=== PATIENT | female | born 1950 | race Caucasian/White ===

== ENCOUNTER 2020-08-13 15:08 | Outpatient (REF) | payer MEDICARE, MEDICAID, SELFPAY ==
--- NOTE | 2020-08-13 15:11 | MM_ITS ---
EXAMINATION: MM SCREENING DIGITAL MAMMOGRAPHY, BILATERAL CLINICAL INFORMATION: Screening. Asymptomatic. The lifetime risk of breast cancer based on the Tyrer-Cuzick Model is 2.4%. COMPARISON: Mammography: October 10, 2017 and studies dating back to July 15, 2013 TECHNIQUE: Digital mammography is performed in craniocaudal and mediolateral oblique views along with computer-aided detection (CAD). FINDINGS: The breasts are heterogeneously dense, which may obscure small masses (ACR BI-RADS breast composition Category c). There are no significant masses, abnormal calcifications, or other abnormalities. MM/MM screening mammo BI IMPRESSION: There are no significant changes from prior study. ASSESSMENT: BI-RADS 1: Negative RECOMMENDATION: Routine annual mammography screening. This patient's information was entered into a reminder system with a target due date for their next mammogram.
== END 2020-08-13 15:09 | disposition home or self-care (01) ==
LOC: HO.MAMMO 15:08
PROVIDERS: PCP Internal Medicine; Visit Provider Internal Medicine
DX: Z12.31 Encounter for screening mammogram for malignant neoplasm of breast (principal)
CPT/HCPCS: 77067

== ENCOUNTER 2020-08-24 09:41 | Outpatient (REF) | payer MEDICARE, MEDICAID, SELFPAY ==
[2020-08-24 11:30] LABS: Hematocrit 45.1 % (37-47); Hemoglobin 14.4 g/dl (12.0-16.0); Mean Corpuscular HGB Conc 31.9 g/dl (31.0-35.0); Mean Corpuscular Hemoglobin 27.4 pg (27.0-33.0); Mean Corpuscular Volume 85.9 fL (80-98); Mean Platelet Volume 11.9 fL (9.4-12.3); Platelet Count 301 X10*3/uL (160-400); Red Blood Count 5.25 X10*6/uL (4.20-5.50); Red Cell Distribution Width 13.7 % (11.0-16.0); White Blood Count 9.8 X10*3/uL (4.8-10.8)
[2020-08-24 11:49] LABS: Alanine Aminotransferase 18 U/L (0-31); Albumin Level 4.4 g/dL (3.5-5.0); Alkaline Phosphatase 70 U/L (39-117); Anion Gap 12 (12-20); Aspartate Amino Transferase 20 U/L (5-31); Bilirubin Total 0.3 mg/dL (0.0-1.0); Blood Urea Nitrogen 12 mg/dL (9-16); Calcium 9.1 mg/dL (8.4-10.2); Carbon Dioxide 27 mmol/L (22-29); Chloride 107 mmol/L (96-108); Cholesterol 225 mg/dL; Estimated Glomerular Filt Rate > 60; Glucose Fasting 90 mg/dL (60-99); HDL Cholesterol 35 mg/dL; LDL Cholesterol Calculated 151 mg/dl; Potassium 4.3 mmol/l (3.3-5.1); Sodium 142 mmol/L (135-145); Total Protein 7.8 g/dL (6.5-8.0); Triglycerides 197 mg/dL
[2020-08-24 11:54] LABS: Glucose Urine UA NEG (NEG); Leukocyte Esterase Urine 1+ (NEG); Nitrite Urine POS (NEG); Urine Blood TRACE (NEG); Urine Ketones NEG (NEG); Urine Protein NEG (NEG-TRACE)
[2020-08-24 12:03] LABS: Appearance Urine CLOUDY; Color Urine YELLOW
[2020-08-24 12:08] LABS: Thyroid Stimulating Hormone 1.79 uIU/mL (0.32-4.0)
[2020-08-24 12:30] LABS: Folate 19.1 ng/mL (> or = 4.0); Vitamin B12 367 pg/mL (200-900)
[2020-08-24 12:39] LABS: Bacteria Urine 3+ /LPF; Calcium Oxalate Crystals Urine 1+ /LPF; RBC Urine 0-2 /HPF (0); WBC Clumps Urine NOTED; WBC Urine 50-75 /HPF (0-4)
[2020-08-27 16:27] LABS: Vitamin D 25-OH, D2 <4 ng/mL; Vitamin D 25-OH, D3 56 ng/mL; Vitamin D 25-OH, Total 56 ng/mL (30-100)
== END 2020-08-24 09:42 | disposition home or self-care (01) ==
LOC: HO.HMGCLDS 09:41
PROVIDERS: PCP Internal Medicine; Visit Provider Internal Medicine
DX: Z20.828 Contact with and (suspected) exposure to other viral communicable diseases (principal); L03.116 Cellulitis of left lower limb; R51.9 Headache, unspecified; G89.29 Other chronic pain; E78.5 Hyperlipidemia, unspecified; I10 Essential (primary) hypertension; E55.9 Vitamin D deficiency, unspecified
CPT/HCPCS: 36415; 80053; 80061; 81001; 81003; 82306; 82607; 82746; 84443; 85027; 87086; 87088; 87186; C9803; U0003

== ENCOUNTER 2020-08-31 07:51 | Outpatient (REF) | payer MEDICARE, MEDICAID, SELFPAY ==
--- NOTE | 2020-08-31 10:41 | XR_ITS ---
EXAMINATION: XR KNEES, BILATERAL AP STANDING VIEWS XR KNEE, RIGHT CLINICAL INFORMATION: Pain COMPARISON: 10/21/2018 TECHNIQUE: AP standing views of both knees. Lateral and sunrise views of the right knee. FINDINGS: AP standing view of the left knee does not demonstrate fracture or dislocation. Medial and lateral joint space compartments are maintained. Views of the right knee demonstrate the patient to be status post total right knee arthroplasty with prosthetic components in good position and without evidence of loosening. No suprapatellar effusion is appreciated. XR/XR knee RT 2V IMPRESSION: No significant abnormality identified on AP view of the left knee. Status post right total knee arthroplasty without change from study of 10/21/2018 .
--- NOTE | 2020-08-31 10:41 | XR_ITS ---
EXAMINATION: XR KNEES, BILATERAL AP STANDING VIEWS XR KNEE, RIGHT CLINICAL INFORMATION: Pain COMPARISON: 10/21/2018 TECHNIQUE: AP standing views of both knees. Lateral and sunrise views of the right knee. FINDINGS: AP standing view of the left knee does not demonstrate fracture or dislocation. Medial and lateral joint space compartments are maintained. Views of the right knee demonstrate the patient to be status post total right knee arthroplasty with prosthetic components in good position and without evidence of loosening. No suprapatellar effusion is appreciated. XR/XR knee standing BI IMPRESSION: No significant abnormality identified on AP view of the left knee. Status post right total knee arthroplasty without change from study of 10/21/2018 .
== END 2020-08-31 07:52 | disposition home or self-care (01) ==
LOC: HO.HOSX 07:51
PROVIDERS: PCP Internal Medicine; Visit Provider Orthopaedic Surgery
DX: M25.562 Pain in left knee (principal); M25.561 Pain in right knee
CPT/HCPCS: 73560; 73565; 99202

== ENCOUNTER 2020-09-15 10:44 | Outpatient (REF) | payer MEDICARE, MEDICAID, SELFPAY ==
[2020-09-15 12:08] LABS: Glucose Urine UA NEG (NEG); Leukocyte Esterase Urine 2+ (NEG); Nitrite Urine POS (NEG); PH 6.5 (5.0-8.0); Urine Blood TRACE (NEG); Urine Ketones NEG (NEG); Urine Protein NEG (NEG-TRACE)
[2020-09-15 12:13] LABS: Appearance Urine HAZY; Color Urine YELLOW
[2020-09-15 12:18] LABS: Bacteria Urine 2+ /LPF; Squamous Epithelial Cell Urine TRACE /LPF; WBC Urine 50-75 /HPF (0-4)
[2020-09-15 12:45] LABS: T4 Thyroxine 6.7 ug/dL (4.5-12.0); Thyroid Stimulating Hormone 1.74 uIU/mL (0.32-4.0)
[2020-09-15 13:01] LABS: Folate > 20.0 ng/mL (> or = 4.0); Vitamin B12 387 pg/mL (200-900)
== END 2020-09-15 10:45 | disposition home or self-care (01) ==
LOC: HO.LAB 10:44
PROVIDERS: Absent Provider Internal Medicine; PCP Internal Medicine; Visit Provider Psychiatry & Neurology Neurology
DX: G31.84 Mild cognitive impairment of uncertain or unknown etiology (principal); R82.71 Bacteriuria
CPT/HCPCS: 36415; 81001; 81003; 82607; 82746; 84436; 84443; 87086; 87088; 87186

== ENCOUNTER 2020-09-28 15:00 | Outpatient (REF) | payer MEDICARE, MEDICAID, SELFPAY ==
--- NOTE | 2020-09-28 15:08 | XR_ITS ---
EXAMINATION: XR KNEE, RIGHT CLINICAL INFORMATION: Trauma COMPARISON: Previous exam most recent 08/31/2020 TECHNIQUE: Four views of the right knee. FINDINGS: There is a 3 component right knee replacement in satisfactory position. No fracture or dislocation is seen. There is no joint effusion. XR/XR knee RT 4V IMPRESSION: No fracture or dislocation. Stable appearance of right knee replacement.
== END 2020-09-28 15:01 | disposition home or self-care (01) ==
LOC: HO.HMGCX 15:00
PROVIDERS: PCP Internal Medicine; Visit Provider Nurse Practitioner Family
DX: M25.561 Pain in right knee (principal)
CPT/HCPCS: 73564

== ENCOUNTER 2020-10-12 09:03 | Outpatient (REF) | payer MEDICARE, MEDICAID, SELFPAY ==
--- NOTE | 2020-10-12 09:06 | CT_ITS ---
EXAMINATION: CT HEAD WITHOUT CONTRAST CLINICAL INFORMATION: Headache. [facility] COMPARISON: None TECHNIQUE: Contiguous axial imaging was performed from the skull base to vertex without intravenous administration of contrast. This CT examination was performed using dose optimization techniques as appropriate, variously including the following: *Automated exposure control *Adjustment of mA and/or kV according to patient size (this includes techniques or standardized protocols for targeted exams where dose is matched to indication/reason for exam; i.e. extremities or head) *Use of iterative reconstruction technique DLP: 646 mGy-cm FINDINGS: There is no acute intra-axial, extra-axial bleed, masses, collection or midline shift. There is focal hypodensity in the caudate nucleus, likely infarct of indeterminate age. No additional areas of acute infarction in evolution. There is dystrophic calcification in bilateral basal ganglia. The lester to white matter differentiation is maintained. The lateral ventricles are symmetrical in size and configuration without enlargement. Bone windows reveal no calvarial abnormality. There is no scalp soft tissue abnormality. Bilateral paranasal sinuses and mastoid air cells are well-aerated. 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 No acute bleed seen.
== END 2020-10-12 09:04 | disposition home or self-care (01) ==
LOC: HO.CT 09:03
PROVIDERS: PCP Internal Medicine; Visit Provider Psychiatry & Neurology Neurology
DX: G31.84 Mild cognitive impairment of uncertain or unknown etiology (principal)
CPT/HCPCS: 70450